=== PATIENT | female | born 1995 | race Caucasian/White ===

== ENCOUNTER 2025-07-27 11:43 | Emergency (ER) | payer SELFPAY ==
[2025-07-27] MEDS ORDERED: Ibuprofen 200 MG TAB ONE (12:01)
[2025-07-27] MEDS ORDERED: Oseltamivir 75 MG CAP ONE (12:33)
== END 2025-07-27 12:43 | disposition home or self-care (01) ==
LOC: BURERS 11:43
DX: J10.1 Influenza due to other identified influenza virus with other respiratory manifestations (principal); F17.290 Nicotine dependence, other tobacco product, uncomplicated
CPT/HCPCS: 87428; 93005; 99283